=== PATIENT | male | born 1955 | race Native Hawaiian/Other Pacific Islander ===

== ENCOUNTER 2020-08-14 10:11 | Outpatient (CLI) | payer OTHER | END 2020-08-14 22:08 | disposition home or self-care (01) | LOC: RESP 10:11 | PROVIDERS: ATTEND Internal Medicine Cardiovascular Disease | DX: I48.91 Unspecified atrial fibrillation (principal) ==

== ENCOUNTER 2021-02-20 11:53 | Emergency (ER) | payer OTHER ==
[~2021-02-20] VITALS: Ht 175.3 cm; Wt 100.7 kg
[2021-02-20 12:11] VITALS: TEMP 97.1
[2021-02-20 13:10] LABS: PLATELET COUNT 165 K/uL (142-355)
[2021-02-20 13:12] LABS: POTASSIUM 4.6 mmol/L (3.6-5.2)
[2021-02-20 14:55] VITALS: BP 133/84
== END 2021-02-20 15:04 | disposition home or self-care (01) ==
LOC: ED 11:53
PROVIDERS: Family Medicine
DX: I50.9 Heart failure, unspecified (principal)
CPT/HCPCS: 80053; 82550; 82553; 83605; 83880; 84484; 85027; 93005; 99283

== ENCOUNTER 2021-06-25 12:01 | Outpatient (CLI) | payer OTHER ==
[2021-06-25 13:26] LABS: PLATELET COUNT 235 K/uL (142-355)
[2021-06-25 13:40] LABS: POTASSIUM 4.5 mmol/L (3.6-5.2)
== END 2021-06-25 20:23 | disposition home or self-care (01) ==
LOC: LABW 12:01
PROVIDERS: ATTEND Physician Assistant Medical
DX: Z79.899 Other long term (current) drug therapy (principal); R21 Rash and other nonspecific skin eruption
CPT/HCPCS: 36415; 80053; 80074; 82785; 83880; 84165; 84439; 84443; 85027; 86008; 86038; 86160; 86334; 86352; 86376

== ENCOUNTER 2021-06-27 09:58 | Outpatient (CLI) | payer OTHER | END 2021-06-27 19:18 | disposition home or self-care (01) | LOC: LAB 09:58 | PROVIDERS: ATTEND Nurse Practitioner Family | DX: R21 Rash and other nonspecific skin eruption (principal); Z79.899 Other long term (current) drug therapy | CPT/HCPCS: 82272; 87328; 87329 ==

== ENCOUNTER 2021-06-28 09:53 | Outpatient (CLI) | payer OTHER | END 2021-06-28 20:15 | disposition home or self-care (01) | LOC: LAB 09:53 | PROVIDERS: ATTEND Nurse Practitioner Family | DX: R21 Rash and other nonspecific skin eruption (principal); Z79.899 Other long term (current) drug therapy | CPT/HCPCS: 82272 ==

== ENCOUNTER 2022-01-07 10:40 | Outpatient (CLI) | payer OTHER | END 2022-01-07 19:29 | disposition home or self-care (01) | LOC: RAD 10:40 | PROVIDERS: ATTEND Internal Medicine Rheumatology | DX: M06.4 Inflammatory polyarthropathy (principal); Z79.899 Other long term (current) drug therapy ==

== ENCOUNTER 2022-02-25 10:08 | Outpatient (CLI) | payer OTHER ==
[2022-02-25 10:34] LABS: POTASSIUM 3.9 mmol/L (3.6-5.2)
== END 2022-02-25 18:53 | disposition home or self-care (01) ==
LOC: LABW 10:08
PROVIDERS: ATTEND Internal Medicine Cardiovascular Disease
DX: R06.09 Other forms of dyspnea (principal); Z79.899 Other long term (current) drug therapy
CPT/HCPCS: 36415; 80048; 83880